=== PATIENT | female | born 1975 | race Caucasian/White ===

== ENCOUNTER 2020-01-08 18:27 | Emergency (ER) | payer OTHER, SELFPAY ==
[2020-01-08 18:39] VITALS: BP 120/63; PULSE 96; RESP 18; TEMP 38.3; O2SAT 100
--- NOTE | 2020-01-08 18:57 | ED.FEMALEGU ---
HPI - Female Genitourinary General Chief complaint: Urogenital-Female Stated complaint: UTI History of Present Illness HPI Narrative: This is a 44-year-old female comes in complaining of having this abdominal pain almost like cramping intermittently for the past 2 weeks. Patient states whenever she had a urinary tract infection she had no symptoms. Patient comes in because the pain has gotten severely worse today where she is barely able to walk. Patient denies any frequency at times or some dysuria. Patient states 2 weeks ago she felt like she had the flu and laid in bed all weekend but the symptoms subsided but she continued to have abdominal pain. Patient denies any back pain no nausea no vomiting no diarrhea patient has a history of omphalocele Related Data Allergies Allergy/AdvReac Type Severity Reaction Status Date / Time morphine AdvReac Unknown Nausea and Verified 01/08/20 18:48 Vomiting Review of Systems Review of Systems: Narrative: CONSTITUTIONAL: Adult female fever, chills, or sweats. EYES: Denies visual changes, redness, or discharge. ENT: Denies rhinorrhea, congestion, sore throat, or otalgia. CARDIOVASCULAR:Denies chest pain, palpitations, or edema. RESPIRATORY: Denies cough or dyspnea. GASTROINTESTINAL: Positive abdominal pain, denies nausea, vomiting, or diarrhea. GENITOURINARY: Denies dysuria or hematuria. Cramping SKIN:[Denies rash or itching. MUSCULOSKELETAL:Denies back pain, joint pain, or myalgia. NEUROLOGIC: Denies headache, numbness, or weakness. PSYCHIATRIC:Denies anxiety or depression [facility] Family History Family History (Updated 07/03/14 @ 07:13 by DOCTOR UNKNOWN) Other Family history of heart disease in male family member before age 55 Social History Social History Smoking packs per day: 1 Smoking cigarettes per day: 20.0 Smoking status: Heavy tobacco smoker Second hand tobacco smoke exposure: Yes Alcohol intake: current Gender identity (if verbalized by the patient): Female Comments At time as signature, I have reviewed and agree with nursing past medical, social, surgical and family history. Please see nursing chart for further information. There is no relevant family history pertinent to the presenting complaint. Exam Narrative: Exam Narrative: GENERAL:Well-appearing, well-nourished, and in no acute distress. Patient is febrile HEAD:Normocephalic, atraumatic. EYES: PERRLA and EOMI. ENT: Nares clear, no rhinorrhea or epistaxis. Mucous membranes moist. NECK: Supple. CHEST: Clear to auscultation. No respiratory distress. HEART: Regular rate and rhythm. No murmur heard. Normal peripheral pulses. ABDOMEN: Soft, positive tender, nondistended, normal active bowel sounds. Microscopic hematuria in urine lower bilateral quadrant/pelvic pain denies back pain, painful with ambulation EXTREMITIES: Normal range of motion. No edema. SKIN: Warm, dry, no rash. NEURO: No focal deficits. Alert and oriented x3. Course Vital Signs Vital signs: Vital Signs Temperature 101.0 F H 01/08/20 18:39 Pulse Rate 96 01/08/20 18:39 Respiratory Rate 18 01/08/20 18:39 Blood Pressure 120/63 01/08/20 18:39 Pulse Oximetry 100 01/08/20 18:39 Temperature 101.0 F H 01/08/20 18:39 Pulse Rate 96 01/08/20 18:39 Respiratory Rate 18 01/08/20 18:39 Blood Pressure 120/63 01/08/20 18:39 Pulse Oximetry 100 01/08/20 18:39 MDM - Female Genitourinary Lab Data Labs: Urine Glucose Negative Reference Range: Negative Urine Bilirubin Negative Reference Range: Negative Urine Ketone Negative Reference Range: Negative Urine Specific [place] 1.025 Reference Range:1.001-1.035 Urine Blood Trace Reference Range: Negative * * Urine pH
== END 2020-01-08 19:05 | disposition short-term general hospital (02) ==
PROVIDERS: Emergency Provider Nurse Practitioner Family; PCP Nurse Practitioner Family
DX: N30.90 Cystitis, unspecified without hematuria (principal); F17.210 Nicotine dependence, cigarettes, uncomplicated; N80.9 Endometriosis, unspecified
CPT/HCPCS: 81003; 99203; G0463

== ENCOUNTER 2020-01-08 19:28 | Emergency (ER) | payer OTHER, SELFPAY ==
--- NOTE | ~2020-01-08 | CT_ITS ---
EXAMINATION: CT abdomen pelvis w con EXAM DATE: 01/08/2020 21:47 INDICATION: Low abdominal pain for 2 weeks with fever. TECHNIQUE: Spiral CT of the abdomen and pelvis was performed following intravenous injection of 100 m L Omnipaque 350. Axial, coronal and sagittal images were reviewed. The dose-length product (DLP) fo r this examination was 666.64 mGy-cm. The exposure was tailored according to patient size (auto mA e xposure control), and iterative reconstruction (ASIR) was used as additional dose reduction technique . There is no prior study for comparison. FINDINGS: The liver, spleen, adrenal glands and pancreas are unremarkable. Gallbladder is unremarkab le. No biliary obstruction. Portal and splenic veins are patent. Kidneys enhance symmetrically. T here is no hydronephrosis. The uterus is unremarkable. The bladder is unremarkable. There is no retroperitoneal or pelvic lymphadenopathy. There is mild scattered colonic diverticulosis. There is moderate amount of perisigmoid inflammation with wall edema. Appearance is most consistent with acute uncomplicated diverticulitis. The appendix is normal. The stomach and small bowel are unremarkable. There is expected amount of colonic stool. No free intraperitoneal gas. The heart is normal in size. There are no pericardial or pleural e ffusions. The lung bases are unremarkable. Old left rib fracture. IMPRESSION: 1. Findings consistent with acute uncomplicated sigmoid diverticulitis. Reviewed, dictated and finalized at location A. ME WRITER
[2020-01-08 20:19] VITALS: BP 109/58; PULSE 108; RESP 20; TEMP 37.9; O2SAT 100
[2020-01-08 20:43] LABS: Basophils Absolute Auto 0.1 K/mm3 (0.0-0.1); Basophils Percent Auto 0.5 % (0.2-1.2); Eosinophils Absolute Auto 0.2 K/mm3 (0-0.3); Eosinophils Percent Auto 1.1 % (0-4.4); Hematocrit 44.2 % (37.0-47.0); Hemoglobin 14.8 g/dL (12.0-15.0); Immature Granulocyte Absolute 0.04 K/mm3 (0.00-0.031); Immature Granulocyte Percent A 0.3 % (0-0.5); Lymphocytes Absolute Auto 2.17 K/mm3 (0.9-3.2); Lymphocytes Percent Auto 14.7 % (18.3-44.2); Mean Corpuscular HGB Conc 33.5 g/dl (32-36); Mean Corpuscular Hemoglobin 31.4 pg (26-34); Mean Corpuscular Volume 93.8 fl (80-100); Mean Platelet Volume 9.5 fl (7.4-10.4); Monocytes Absolute Auto 1.3 K/mm3 (0.1-0.6); Monocytes Percent Auto 8.6 % (2.6-8.5); Neutrophils Absolute Auto 11.1 K/mm3 (1.3-6.7); Neutrophils Percent Auto 74.8 % (45.5-73.1); Platelet Count Result 294 k/mm3 (150-375); Red Blood Count 4.71 M/mm3 (4.2-5.4); Red Cell Distribution Width 12.4 % (11.5-14.5); White Blood Count 14.8 K/mm3 (4.5-10.0)
[2020-01-08 20:55] LABS: Blood Urea Nitrogen 10 mg/dL (7-17); Calcium 9.7 mg/dL (8.4-10.2); Carbon Dioxide 27 mmol/L (22-30); Chloride 99 mmol/L (98-107); Estimated CRCL calculation 83 ml/min; Estimated Glomerular Filt Rate > 60; Glucose 97 mg/dL (65-105); Potassium 4.2 mmol/L (3.4-5.0); Sodium 138 mmol/L (137-145)
--- NOTE | 2020-01-08 21:04 | ED.ABDPAIN ---
HPI - Abdominal Pain General Chief Complaint: Abdominal Pain Stated Complaint: kidney stones from urgi-care Time Seen by Provider: 01/08/20 21:02 Source: patient and RN notes reviewed Mode of arrival: ambulatory Limitations: no limitations History of Present Illness HPI narrative: Pt is a 44 y/o female with a Hx of endometriosis, who presents to the ED with c/o bilateral lower ABD pain starting 2 weeks ago and worsening today. She notes that she also developed a fever and chills earlier today. Pt states that she was evaluated at an urgent care facility this afternoon for her symptoms, and notes that she was advised to come to the ED to rule out a possible kidney stone. She currently rates her pain at 8/10. Pt denies any nausea, vomiting, diarrhea, dysuria, urinary frequency, vaginal discharge, back pain, or lightheadedness. She notes that her last normal BM was this morning. Pt states that she hasn't taken any pain medications today for her symptoms. MD elicited complaint: abdominal pain Onset (ago): week(s) (2) Pain Consistency: colicky Location: other (bilateral lower ABD) Pain scale (0-10): 8 Associated symptoms: fever and chills Related Data Allergies Allergy/AdvReac Type Severity Reaction Status Date / Time morphine AdvReac Unknown Nausea and Verified 01/08/20 18:48 Vomiting Review of Systems Review of Systems: All systems reviewed & are unremarkable except as noted in HPI and below Constitutional: Constitutional: Reports chills and Reports fever(s) Gastrointestinal: Gastrointestinal: Reports abdominal pain (bilateral lower ABD pain), Denies diarrhea, Denies nausea and Denies vomiting Genitourinary: Genitourinary: Denies abnormal vaginal bleeding, Denies dysuria and Denies other (urinary frequency) Musculoskeletal: Musculoskeletal: Denies back pain Neurologic: Denies other (lightheadedness) [facility] Past Medical History Medical History Anemia Anxiety Cyst of right breast benign Endometriosis GERD (gastroesophageal reflux disease) Omphalocele Rib fracture Surgical History Surgical History Hx of abdominal surgery repair of omphalocele Hx of laparoscopy Hx of removal of cyst cyst removed from rt breast Family History Family History (Updated 07/03/14 @ 07:13 by DOCTOR UNKNOWN) Other Family history of heart disease in male family member before age 55 Social History Social History Smoking packs per day: 1 Smoking cigarettes per day: 20.0 Smoking status: Heavy tobacco smoker Second hand tobacco smoke exposure: Yes Alcohol intake: current Gender identity (if verbalized by the patient): Female Exam Narrative: Exam Narrative: GENERAL: Well-appearing, well-nourished, and moderate distress due to pain. HEAD: Normocephalic, atraumatic EYES: PERRLA and EOMI, conjunctiva clear without discharge THROAT:Mucous membranes moist, Oropharynx normal without erythema, exudate, peritonsillar swelling or fluctuance NECK: Supple, without lymphadenopathy or mass RESPIRATORY: No respiratory distress, Airway patent, Respirations non-labored, Clear to auscultation without rales, rhonchi or wheeze HEART: Regular rate and rhythm. No murmur heard. Normal peripheral pulses. ABDOMEN: Soft, bilateral lower quadrant tenderness, nondistended, normal active bowel sounds. No masses. No rebound or guarding, No organomegaly. EXTREMITIES: No edema, normal strength with full range of motion. SKIN: Warm, dry, normal color without rash NEURO: Alert and oriented x3. CN 2-12 grossly intact. No focal deficits. PSYCH: Normal mood and affect. Course Reevaluation(s) Reevaluation #1: Patient states she feels better. I discussed diagnosis of diverticulitis and treatment. She was started on antibiotics in ER. She is comfortable with discharge home. Date: 01/08/20 Ti
[2020-01-08 21:10] LABS: Add Urine Microscopic? YES; Appearance Urine Clear (Clear); Bacteria Urine Trace /hpf; Bilirubin Urine Negative (Negative); Blood Urine 1+ (Negative); Color Urine Yellow (Yellow); Glucose Urine UA Negative (Negative); Ketones Urine Negative (Negative); Leukocyte Esterase Ur Negative LEU/UL (Negative); Mucus Urine Rare /lpf; Nitrate Urine Negative (Negative); Protein Urine Negative (Negative); Squamous Epithelial Cell Urine Moderate /hpf (Few); Urobilinogen Urine Negative mg/dL (<2.0); WBC Urine 0-3 /hpf
[2020-01-08] MEDS: ONDANSETRON INJ 4 MG/2 ML VIAL IV PUSH (21:35)
[2020-01-08] MEDS: SODIUM CHLORIDE 0.9% IV 1,000 ML 999 ML IV CONT ×2 (21:35→22:43)
[2020-01-08] MEDS: HYDROMORPHONE HCL 1 MG/ML INJ 0.5 MG IV PUSH (21:35)
[2020-01-08 21:43] LABS: Lactic Acid Reflex 0.6 mmol/L (0.7-2.1)
[2020-01-08 22:44] VITALS: BP 97/72; PULSE 92; RESP 16; O2SAT 98
[2020-01-08 23:52] VITALS: BP 108/76; PULSE 79; RESP 15; TEMP 37.3; O2SAT 100
== END 2020-01-08 23:55 | disposition home or self-care (01) ==
PROVIDERS: Emergency Medicine; Emergency Provider General Practice; PCP Nurse Practitioner Family
DX: K57.32 Diverticulitis of large intestine without perforation or abscess without bleeding (principal); F17.200 Nicotine dependence, unspecified, uncomplicated; K21.9 Gastro-esophageal reflux disease without esophagitis; N80.9 Endometriosis, unspecified; Z86.2 Personal history of diseases of the blood and blood-forming organs and certain disorders involving the immune mechanism
CPT/HCPCS: 36415; 74177; 80048; 81001; 81025; 83605; 85025; 96365; 96375; 99284; J0131; J1170; J2405; J2543; J7030; Q9967

== ENCOUNTER 2020-07-28 13:16 | Outpatient (CLI) | payer OTHER, SELFPAY ==
--- NOTE | ~2020-07-28 | CT_ITS ---
EXAMINATION: CT abdomen pelvis w con EXAM DATE: 07/28/2020 13:50 INDICATION: Abdominal pain. TECHNIQUE: Spiral CT of the abdomen and pelvis was performed following intravenous injection of 100 m L Omnipaque 350. Axial, coronal and sagittal images were reviewed. The dose-length product (DLP) fo r this examination was 633.64 mGy-cm. The exposure was tailored according to patient size (auto mA e xposure control), and iterative reconstruction (ASIR) was used as additional dose reduction technique . Comparison is made to prior examination from 01/08/2020. FINDINGS: The liver, spleen, adrenal glands and pancreas are unremarkable. Gallbladder is unremarkab le. No biliary obstruction. Portal and splenic veins are patent. Kidneys enhance symmetrically. T here is no hydronephrosis. The uterus and ovaries are unremarkable, no adnexal mass. The bladder i s unremarkable. There is no retroperitoneal or pelvic lymphadenopathy. The appendix is normal. There is mild sigmoid colonic diverticulosis. There is no adjacent inflammat ory change to suggest diverticulitis. The stomach and small bowel are unremarkable. There is expecte d amount of colonic stool. No free intraperitoneal gas. The heart is normal in size. There are n o pericardial or pleural effusions. The lung bases are unremarkable. There are no osteoblastic or o steolytic lesions identified. Compared to prior study, resolution of previously seen perisigmoid inf lammation. IMPRESSION: Mild sigmoid diverticulosis without adjacent inflammation. Reviewed, dictated and finalized at location B.
== END 2020-07-28 13:17 | disposition home or self-care (01) ==
PROVIDERS: PCP Nurse Practitioner Family; Visit Provider Internal Medicine
DX: K57.30 Diverticulosis of large intestine without perforation or abscess without bleeding (principal)
CPT/HCPCS: 74177; Q9967